=== PATIENT | female | born 1970 | race Caucasian/White ===

== ENCOUNTER 2020-09-06 07:35 | Day surgery (SDC) | payer OTHER ==
[2020-09-05 11:35] VITALS: BMI 32.1
[2020-09-06] MEDS ORDERED: Fentanyl 100 MCG/2 ML VIAL ONE (07:46)
[2020-09-06] MEDS ORDERED: Sodium Bicarbonate 2.5 MEQ/5 ML VIAL ONE (07:47)
[2020-09-06] MEDS ORDERED: Midazolam HCl 2 mg/2 ml Vial ONE (07:47)
[2020-09-06 07:59] LABS: #Basophils 0.1 thou/uL (0.0-0.2); #Eosinphils 0.3 thou/uL (0.0-0.7); #Lymphocytes 1.8 thou/uL (1.20-3.40); #Monocytes 0.4 thou/uL (0.11-0.59); #Neutrophils 2.5 thou/uL (1.40-6.50); %Basophils 1.4 % (0.0-1.0); %Eosinophils 5.8 % (0.0-10.0); %Lymphocytes 35.3 % (21.0-51.0); %Monocytes 8.2 % (0.0-10.0); %Neutrophils 49.3 % (42.0-75.0); Hemoglobin 13.8 g/dL (12.0-16.0); Mean Corpuscular HGB CONC 35.1 g/dL (32.0-36.0); Mean Corpuscular Hemoglobin 29.8 pg (27.0-31.0); Platelet Count 192 thou/uL (130-400); RBC Distribution Width 11.8 % (11.5-14.5); Red Blood Cell (RBC) Count 4.64 mill/uL (4.20-5.40); White Blood Cell (WBC) Count 5.2 thou/uL (4.8-10.8)
[2020-09-06 08:06] LABS: PTT 34.1 sec (22.9-36.1); Prothrombin Time 12.9 sec (12.0-14.7)
[2020-09-06] MEDS ORDERED: Lidocaine 1% PF 5 ML VIAL ONE (08:39)
[2020-09-06 08:44] VITALS: BP 156/92; TEMP 97.2
--- NOTE | 2020-09-06 09:49 | ULT ---
Ultrasound-guided core biopsy of left hepatic lobe: 09/06/2020 HISTORY: Abnormal liver function tests, random liver biopsy requested FINDINGS: Informed consent obtained prior to the procedure. The skin overlying the left lobe of the liver in the midline epigastric region is prepped and draped in normal sterile fashion and anesthetized with 1% buffered lidocaine. With direct sonographic guidance, an 18-gauge core biopsy needle is advanced into the left lobe of th e liver and a core biopsy is obtained. On visual inspection, the specimen appears adequate, comprised totally of hepatic tissue. Needle was removed and pressure was held over the biopsy site. Post biopsy imaging demonstrates no ev idence for active bleeding or subcapsular hematoma. IMPRESSION: Successful ultrasound-guided random core biopsy of left hepatic lobe.
== END 2020-09-06 11:00 | disposition home or self-care (01) ==
LOC: ULT 07:35
PROVIDERS: ATTEND Internal Medicine Gastroenterology
PROC: 0FB23ZX Excision of Left Lobe Liver, Percutaneous Approach, Diagnostic (ICD-10-PCS; principal; 2020-09-06)
DX: K76.0 Fatty (change of) liver, not elsewhere classified (principal); M35.9 Systemic involvement of connective tissue, unspecified; M19.90 Unspecified osteoarthritis, unspecified site; Z79.899 Other long term (current) drug therapy
CPT/HCPCS: 47000; 76942; 85025; 85610; 85730; 88307; 88313; J2250; J3010